=== PATIENT | male | born 1990 | race Caucasian/White ===

== ENCOUNTER 2017-03-02 12:30 | Emergency (ER) | payer SELFPAY ==
[~2017-03-02] VITALS: Ht 180.3 cm; Wt 81.0 kg
[2017-03-02 12:35] VITALS: PULSE 99; RESP 18; TEMP 98.3; O2SAT 99
[2017-03-02] MEDS ORDERED: LIDOCAINE HCL 1% 50 ML VIAL INFIL ONE (12:45)
[2017-03-02] MEDS ORDERED: TETANUS/DIPHTHERIA TOXOID ADULT 0.5 ML VIAL IM ONE (13:00)
--- NOTE | 2017-03-02 13:09 | PD ---
HPI Chief Complaint: Laceration/Skin Injury Time Seen by Provider: 12:40 Travel History International Travel<30 days: No Contact w/Intl Traveler<30days: No Traveled to known affect area: No History of Present Illness HPI 26-year-old male presents the emergency department for laceration to the left third digit. Patient reports that prior to arrival his finger was crushed by the lid of his cooler in his boat. He sustained a 3 cm laceration to the distal left third digit volar aspect. No nail injury. He reports moderate pain at the site of the laceration. He reports normal sensation and movement in the digit. The digit is warm brisk cap refill bleeding well-controlled. Tetanus immunization unknown. No significant past medical history. [facility] Past Medical History Medical History: Denies Significant Hx Cardiovascular Problems: Yes (HEART MURMUR) Diminished Hearing: No Immunizations Current: Yes Tetanus Vaccination: > 5 Years Influenza Vaccination: No Past Surgical History Tonsillectomy: Yes Social History Alcohol Use: Yes (5 TODAY) Tobacco Use: Yes (1/2) Substance Use: No Allergies-Medications (Allergen,Severity, Reaction): Coded Allergies: Penicillin (Verified Allergy, Unknown, 03/02/17) Reported Meds & Prescriptions Reported Meds & Active Scripts Active No Active Prescriptions or Reported Medications Review of Systems Except as stated in HPI: all other systems reviewed are Neg Physical Exam Narrative GENERAL: Well-nourished, well-developed patient. SKIN: Focused skin assessment warm/dry. 3 cm laceration to the distal aspect of the left third digit volar aspect. No nail bed injury. HEAD: Normocephalic. EYES: No scleral icterus. No injection or drainage. NECK: Supple, trachea midline. No JVD or lymphadenopathy. CARDIOVASCULAR: Regular rate and rhythm without murmurs, gallops, or rubs. RESPIRATORY: Breath sounds equal bilaterally. No accessory muscle use. GASTROINTESTINAL: Abdomen soft, non-tender, nondistended. MUSCULOSKELETAL: 3 cm laceration to the distal aspect of the left third digit volar aspect. No tendon injury visualized. Full range of motion against resistance. Normal sensation. Wound is clean. No nail bed injury. No cyanosis , or edema. Data Data Last Documented VS Vital Signs Date Time Temp Pulse Resp B/P Pulse Ox O2 Delivery O2 Flow Rate FiO2 03/02/17 12:35 98.3 99 18 99 Orders Finger (Loc3srr) (03/02/17 ) Lidocaine 1% Inj (50 Ml) (Xylocaine 1% I (03/02/17 12:45) Tetanus/Diphtheria Tox Adult (Tetanus/Di (03/02/17 13:00) MDM Medical Decision Making Medical Screen Exam Complete: Yes Emergency Medical Condition: Yes Differential Diagnosis Laceration, tendon injury, finger fracture, contusion Narrative Course 26-year-old male with no significant past medical history presents to the emergency department after sustaining a laceration to his left third digit caused by bit cooler. The wound is clean, digit is neurovascularly intact, no tendon injury visualized, patient has full range of motion. X-ray pending. Wound will be repaired with sutures. Tetanus immunization was updated. Wound irrigated with copious amount of normal saline. Laceration repaired. X- ray negative for fracture. Patient instructed to have wound rechecked in 2 days. Suture removal in 10. Procedures Procedure Narrative LACERATION LOCATION: [Left third digit volar aspect-] LENGTH: [-3 cm] NUMBER OF STITCHES/FIDELIA: 7 REPAIR: The area of the laceration was prepped with Betadine and sterilely draped. The laceration was infiltrated with 1% lidocaine digital block. The wound was copiously irrigated and explored without evidence of foreign body, tendon injury or neurovascular injury. The wound was closed using 4-0 Ethilon. This was a single layer repair. A sterile dressing was applied. The patient was advised to keep the dressing clean and dry. Patient tolerated the procedure well. Patient instructed to have the wound rechecked in 2 days. Suture removal in 10. Return prior should he develop any signs or symptoms of infection such as fever, redness, increased swelling or pain, drainage from the site. Diagnosis Primary Impression: Finger laceration Qualified Code: S61.219A - Finger laceration, initial encounter Referrals: Primary Care Physician Patient Instructions: Finger Laceration (ED), General Instructions Additional Instructions: Patient instructed to have the wound rechecked in 2 days. Suture removal in 10. Return prior should he develop any signs or symptoms of infection such as fever, redness, increased swelling or pain, drainage from the site. Scripts No Active Prescriptions or Reported Meds Disposition: 01 DISCHARGE HOME Condition: Stable Ruby Quarles March 02, 2017 13:09
--- NOTE | 2017-03-02 13:35 | RADHPO ---
EXAM DATE/TIME: 03/02/2017 13:05 [facility] COMPARISON: No previous studies available for comparison. INDICATIONS : Left hand third digit laceration. Patient states his finger got shut in a cooler. MEDICAL HISTORY : None. SURGICAL HISTORY : None. ENCOUNTER: Initial ACUITY: 1 day PAIN SCORE: 6/10 LOCATION: Left hand, third digit. FINDINGS: 3 views of the left hand third digit demonstrate soft tissue laceration at the tip of the third digit . There is no radiopaque foreign body. The adjacent distal phalanx demonstrates no fracture or acute abnormality. Remaining visualized left and structures are within normal limits. CONCLUSION: There is a laceration at the distal tip of the third digit. There is no fracture or radiopaque foreig n body. Abdi Banks MD on March 02, 2017 at 13:32 Board Certified Radiologist. This report was verified electronically.
== END 2017-03-02 14:12 | disposition home or self-care (01) ==
LOC: PHEFT 12:30
DX: S61.219A Laceration without foreign body of unspecified finger without damage to nail, initial encounter (principal); Z23 Encounter for immunization; F17.210 Nicotine dependence, cigarettes, uncomplicated; W23.0XXA Caught, crushed, jammed, or pinched between moving objects, initial encounter; Y93.89 Activity, other specified; Y92.89 Other specified places as the place of occurrence of the external cause; Y99.8 Other external cause status
CPT/HCPCS: 12002; 73140; 90471; 90714